=== PATIENT | male | born 1985 | race Caucasian/White ===

== ENCOUNTER 2017-02-10 20:44 | Emergency (ER) | payer MEDICAID ==
[~2017-02-10] VITALS: Ht 160 cm; Wt 73.0 kg
[2017-02-10 20:46] VITALS: Ht 160 cm; Wt 73.0 kg
--- NOTE | 2017-02-10 23:00 | RADRPT ---
PROCEDURE: CT Head without. CLINICAL INDICATION: Headache. TECHNIQUE: The study was performed utilizing a multi-slice, multidetector CT scanner. Direct spira l 1 mm axial sections were obtained through the head without the use of intravenous contrast materia l. 1 or more of the following dose reduction techniques were utilized: Automated exposure control, adjustment of the mA and/or kV according to patient's size, iterative reconstruction technique. Co khushboo and sagittal reformations were obtained. The images were reviewed on a PACS workstation. RADIATION DOSE: CTDIvol: 43.1 mGyDLP: 720.2 mGy-cm COMPARISON: No prior studies are available for comparison. FINDINGS: There is no intracranial hemorrhage, extra-axial fluid collection, mass lesion, midline shift or hyd rocephalus. The ventricles, sulci and cisterns are within normal limits. The white matter is unrem arkable. The hu-white matter differentiation is preserved. The basal cisterns are patent. The m idline structures are intact. The orbits, calvarium and extracranial soft tissues are normal in tayla earance. The visualized paranasal sinuses, mastoid air cells and middle ear cavities are normally ae rated. There is pneumatization of the bilateral petrous apices without evidence of inflammatory mosley ges, normal variant. IMPRESSION: 1. No acute intracranial abnormality. No intracranial hemorrhage, extra-axial fluid collection, ma ss lesion or hydrocephalous. RPTAT: HGAS .Ascencion Mcfarland MD, Date Time Electronically viewed and signed by .Ascencion Mcfarland MD, MD on 02/10/2017 23:00 .S/
[2017-02-10] MEDS ORDERED: IBUP-1542 PO (23:09)
--- NOTE | 2017-02-10 23:12 | ERD ---
ER Documentation Chief Complaint Date/Time DATE: 02/10/17 TIME: 23:11 Chief Complaint c/o increasing pressure to bilateral eyes x 6 months HPI This 31-year-old male complains of intermittent frontal headache for the last 6 months. He has an additional concern over recent visits with handle rounder operator who told any increasing intraocular pressure of 23. He is scheduled for recheck. Denies any vomiting, visual field deficits, fevers, neck stiffness or rashes. Any chest pain or shortness of breath. ROS All systems reviewed and are negative except as per history of present illness. Medications Home Meds Active Scripts Ibuprofen* (Motrin*) 600 Mg Tab, 600 MG PO Q6, #20 TAB Prov:LLUVIA GATICA MD 02/10/17 PMhx/Soc Medical and Surgical Hx: pt denies Medical Hx, pt denies Surgical Hx History of Surgery: No Anesthesia Reaction: No Hx Neurological Disorder: No Hx Respiratory Disorders: No Hx Cardiac Disorders: No Hx Psychiatric Problems: No Hx Miscellaneous Medical Probl: No Hx Alcohol Use: No Hx Substance Use: No Hx Tobacco Use: No Smoking Status: Never smoker Physical Exam Vitals Vital Signs Date Time Temp Pulse Resp B/P Pulse Ox O2 Delivery O2 Flow Rate FiO2 02/10/17 20:46 98.3 75 18 139/90 98 Physical Exam Const: [] [id number]. Head: Atraumatic Eyes: Normal Conjunctiva ENT: Normal External Ears, Nose and Mouth. Neck: Full range of motion..~ No meningismus. Resp: Clear to auscultation bilaterally Cardio: Regular rate and rhythm, no murmurs Abd: Soft, non tender, non distended. Normal bowel sounds Skin: No petechiae or rashes Back: No midline or flank tenderness Ext: No cyanosis, or edema Neur: Awake and alert cranial nerves II through XII grossly intact. Normal gait. No cerebellar signs Psych: Normal Mood and Affect Procedures/MDM Patient presents with a history of mildly elevated intraocular pressure. He is concerned about his headaches. Given patient concern CT brain was performed which was read as normal. Patient seems considerably anxious over his recent diagnosis and is concerned that he will go blind. Suspect patient is having symptoms to be anxiety related. He will be treated with ibuprofen and primary care follow-up and follow-up as instructed by the handle rounder operator. The patient was stable with no new complaints during the ER course. Clinically, there is no current evidence to suggest meningitis, sepsis, acute abdomen, pneumonia, acute coronary syndrome, pulmonary embolism, or any other emergent condition appearing to require further evaluation or hospitalization. The patient should certainly return for any new or worsening symptoms per the aftercare instructions. They should otherwise follow-up with her primary care doctor for reevaluation this week. Disclaimer: Inadvertent spelling and grammatical errors are likely due to EHR/dictation software use and do not reflect on the overall quality of patient care. Also, please note that the electronic time recorded on this note does not necessarily reflect the actual time of the patient encounter. Departure Diagnosis: Primary Impression: Headache around the eyes Additional Impression: Eye problem Condition: Stable Patient Instructions: Your Body's Response to Anxiety, Self-Care for Headaches Additional Instructions: Normal today. Suspect symptoms may be due to anxiety. Follow-up with ophthalmology as directed otherwise for new or worsening symptoms. LLUVIA GATICA MD Feb 10, 2017 23:12
[2017-02-10 23:30] VITALS: BP 127/93; PULSE 69; RESP 16; TEMP 98.2
== END 2017-02-10 23:30 | disposition home or self-care (01) ==
LOC: FTE 20:44
DX: R51 Headache (principal); H57.8 Other specified disorders of eye and adnexa
CPT/HCPCS: 70450; Z7502

== ENCOUNTER 2017-02-11 16:11 | Emergency (ER) | payer MEDICAID ==
[~2017-02-11] VITALS: Wt 78.0 kg
[~2017-02-11 16:11] MED LIST: IBUP-1542 PO
[2017-02-11] MEDS ORDERED: ACETAMINOPHEN 325 MG TAB PO ONE (18:30)
[2017-02-11 19:02] LABS: BASOPHIL # 0.1 10^3/ul (0.0-0.1); BASOPHILS % 0.5 % (0.0-2.0); EOSINOPHILS # 0.1 10^3/ul (0.0-0.5); EOSINOPHILS % 0.6 % (0.0-7.0); HEMATOCRIT 44.6 % (42.0-52.0); HEMOGLOBIN 15.2 g/dl (14.0-18.0); LYMPHOCYTES % 37.1 % (15.0-51.0); MEAN CORPUSCULAR HEMOGLOBIN 29.4 pg (29.0-33.0); MEAN CORPUSCULAR HGB CONC 34.1 g/dl (32.0-37.0); MEAN CORPUSCULAR VOLUME 86.3 fl (82.0-101.0); MEAN PLATELET VOLUME 9.2 fl (7.4-10.4); MONOCYTE # 0.8 10^3/ul (0.3-0.9); NEUTROPHIL # 5.8 10^3/ul (1.6-7.5); NEUTROPHILS % 54.4 % (39.0-77.0); PLATELET COUNT 319 10^3/UL (140-415); RED BLOOD COUNT 5.17 10^6/ul (4.70-6.10); RED CELL DISTRIBUTION WIDTH 11.9 % (11.5-14.5); WHITE BLOOD COUNT 10.7 10^3/ul (4.8-10.8)
--- NOTE | 2017-02-11 21:47 | ERD ---
ER Documentation Chief Complaint Date/Time DATE: 02/11/17 TIME: 21:45 Chief Complaint HEADACHE X 1 MONTH HPI This patient is a 31-year-old male presenting to the emergency department with complaints of intermittent headache for the past month. He was seen here yesterday for similar symptoms and had a CT scan which was negative for any acute findings. He reports the headache is behind his eyes. Ibuprofen has been relieving symptoms. He went to see an vessel scrapper helper by the name of at the [facility] today who ran a series of tests which came back unremarkable. The vessel scrapper helper they recommended he had a CRP and sed rate to rule out inflammation. The patient is now returning requesting these tests. He denies any new symptoms currently. ROS All systems reviewed and are negative except as per history of present illness. Medications Home Meds Active Scripts Ibuprofen* (Motrin*) 600 Mg Tab, 600 MG PO Q6, #20 TAB Prov:LLUVIA GATICA MD 02/10/17 Allergies Allergies: Coded Allergies: No Known Allergy (Unverified , 02/11/17) PMhx/Soc History of Surgery: No Anesthesia Reaction: No Hx Neurological Disorder: No Hx Respiratory Disorders: No Hx Cardiac Disorders: No Hx Psychiatric Problems: No Hx Miscellaneous Medical Probl: No Hx Alcohol Use: No Hx Substance Use: No Hx Tobacco Use: No Physical Exam Vitals Vital Signs Date Time Temp Pulse Resp B/P Pulse Ox O2 Delivery O2 Flow Rate FiO2 02/11/17 16:15 98.1 89 18 133/91 99 Physical Exam Const: Nontoxic, well-appearing male in no acute distress. Head: Atraumatic Eyes: Normal Conjunctiva and extraocular movements are intact bilaterally. ENT: Normal External Ears, Nose and Mouth. Neck: Full range of motion Skin: No petechiae or rashes Back: No midline or flank tenderness Ext: No cyanosis, or edema Neur: Awake and alert Psych: Normal Mood and Affect Result Diagram: 02/11/17 1832 Results 24 hrs Laboratory Tests Test 02/11/17 18:32 White Blood Count 10.710^3/ul Red Blood Count 5.1710^6/ul Hemoglobin 15.2g/dl Hematocrit 44.6% Mean Corpuscular Volume 86.3fl Mean Corpuscular Hemoglobin 29.4pg Mean Corpuscular Hemoglobin Concent 34.1g/dl Red Cell Distribution Width 11.9% Platelet Count 40167^3/UL Mean Platelet Volume 9.2fl Neutrophils % 54.4% Lymphocytes % 37.1% Monocytes % 7.0% Eosinophils % 0.6% Basophils % 0.5% Nucleated Red Blood Cells % 0.0/100WBC Neutrophils # 5.810^3/ul Lymphocytes # 4.010^3/ul Monocytes # 0.810^3/ul Eosinophils # 0.110^3/ul Basophils # 0.110^3/ul Nucleated Red Blood Cells # 0.010^3/ul Erythrocyte Sedimentation Rate 3mm/Hr C-Reactive Protein < 0.5mg/dl Current Medications Medications (Trade) Dose Ordered Sig/Makayla Route PRN Reason Start Time Stop Time Status Last Admin Dose Admin Acetaminophen (Tylenol Tab) 650 mg ONCE ONCE PO 02/11/17 18:30 02/11/17 18:31 DC 02/11/17 18:33 Procedures/MDM 31-year-old male presents to the emergency department for request of laboratory work. I ordered a sed rate and CRP, as requested by the vessel scrapper helper which he saw today. Both came back within normal limits. The patient is given a copy of the results. He was advised to follow-up with his primary care physician in the next 1-2 days. He may return to the department immediately for any new or worsening symptoms. Departure Diagnosis: Primary Impression: Encounter for laboratory test Condition: Fair Patient Instructions: Managing Tension-type Headache Symptoms Referrals: [facility] YOU HAVE RECEIVED A MEDICAL SCREENING EXAM AND THE RESULTS INDICATE THAT YOU DO NOT HAVE A CONDITION THAT REQUIRES URGENT TREATMENT IN THE EMERGENCY DEPARTMENT. FURTHER EVALUATION AND TREATMENT OF YOUR CONDITION CAN WAIT UNTIL YOU ARE SEEN IN YOUR DOCTORS OFFICE WITHIN THE NEXT 1-2 DAYS. IT IS YOUR RESPONSIBILITY TO MAKE AN APPOINTMENT FOR FOLOW-UP CARE. IF YOU HAVE A PRIMARY DOCTOR --you should call your primary doctor and schedule an appointment IF YOU DO NOT HAVE A PRIMARY DOCTOR YOU CAN CALL OUR PHYSICIAN REFERRAL HOTLINE AT IF YOU CAN NOT AFFORD TO SEE A PHYSICIAN YOU CAN CHOSE FROM THE FOLLOWING [facility] [address] [facility] [address] [facility] [address] [facility] [address] [facility] [address] [facility]. [facility]. [address] Additional Instructions: No mas mejor en 2-3 krishnan, regresar. Mas peor en 24 horas, regresear rapidamente. Ir a doctor primario in 5-7 krishnan. Usar instrucciones cuando douglas medicamento. ALISHA YAÑEZ PA-C Feb 11, 2017 21:47
== END 2017-02-11 20:31 | disposition home or self-care (01) ==
LOC: FTE 16:11
DX: Z00.00 Encounter for general adult medical examination without abnormal findings (principal)
CPT/HCPCS: 36415; 85025; 85651; 86140; Z7502; Z7610; 99283